=== PATIENT | female | born 1955 | race Caucasian/White ===

== ENCOUNTER 2019-08-21 16:24 | Emergency (ER) | payer MEDICARE, BC ==
--- NOTE | 2019-08-21 16:40 | EDM.PDOC ---
ED HPI GENERAL MEDICAL PROBLEM - General Chief Complaint: Upper Extremity Injury/Pain Stated Complaint: ACCIDENT VIA [facility] Time Seen by Provider: 08/21/19 16:25 Source of Information: Reports: Patient, EMS Notes Reviewed History Limitations: Reports: No Limitations - History of Present Illness INITIAL COMMENTS - FREE TEXT/NARRATIVE: And fell off a horse to ground and is complaining of severe left elbow pain and validity to flex or extend her left elbow. After falling the patient walked 2 miles back to where she started through the brewer he has complained of absolutely no problems with balance or any lower extremity pain. Patient denies any head injury and states she was wearing a helmet when she fell. She is not anticoagulated. Did receive Toradol ambulance personnel prior to arrival Onset: Today Duration: Hour(s): (2) Location: Reports: Upper Extremity, Left Quality: Reports: Sharp Severity: Severe Improves with: Reports: Medication ([place] in the ambulance prior to arrival) Worsens with: Reports: Movement Associated Symptoms: Denies: Confusion, Chest Pain, Fever/Chills, Headaches, Nausea/Vomiting, Seizure, Shortness of Breath, Syncope Treatments DIAL PRINTER: Reports: Other (see below) (Toradol) - Related Data Allergies Allergy/AdvReac Type Severity Reaction Status Date / Time No Known Allergies Allergy Verified 08/21/19 16:32 Home Meds: Home Meds NK [No Known Home Meds] 08/21/19 [History] Past Medical History - Past Health History Medical/Surgical History: Denies Medical/Surgical History (She is on no chronic medication) Review of Systems - Review of Systems Review Of Systems: See Below Constitutional: Reports: No Symptoms. Denies: Fever, Weakness Eyes: Denies: Blurred Vision Ears: Denies: Dizziness Nose: Denies: Congestion, Bloody Discharge Mouth/Throat: Denies: Bleeding, Loose Teeth, Pain, Hoarse Voice, Muffled Voice Respiratory: Denies: Shortness of Breath, Wheezing Cardiovascular: Reports: Irregular Heart Rate (SHe has a history of frequent PVCs). Denies: Chest Pain, Lightheadedness, Syncope GI/Abdominal: Denies: Abdominal Pain Genitourinary: Denies: Dysuria Musculoskeletal: Reports: Arm Pain (Left elbow). Denies: Neck Pain, Shoulder Pain, Hand Pain, Leg Pain Skin: Denies: Jaundice, Diaphoresis, Bruising, Erythema Neurological: Denies: Confusion, Dizziness, Headache, Trouble Speaking, Difficulty Walking Psychiatric: Reports: No Symptoms ED EXAM, GENERAL - Physical Exam Exam: See Below Exam Limited By: No Limitations General Appearance: Alert, WD/WN, Anxious Eye Exam: Bilateral Eye: EOMI, PERRL Ears: Normal External Exam, Normal Canal, Normal TMs Ear Exam: Bilateral Ear: Auricle Normal, Canal Normal, TM normal Nose: Normal Inspection. No: Nasal Drainage, Clear Rhinorrhea Throat/Mouth: Normal Inspection, Normal Lips, Normal Gums Head: Atraumatic, Normocephalic. No: Facial Swelling, Facial Tenderness Neck: Normal Inspection, Full Range of Motion. No: Limited Range of Motion, Tender Midline Respiratory/Chest: No Respiratory Distress, Lungs Clear Cardiovascular: Normal Peripheral Pulses, Regular Rate, Rhythm, No Edema Peripheral Pulses: 1+: Radial (L), Radial (R) GI/Abdominal: Normal Bowel Sounds, No Distention, No Mass Extremities: Normal Inspection, Normal Range of Motion, No Pedal Edema, Normal Capillary Refill, Arm Pain, Limited Range of Motion Neurological: Alert, Oriented, Normal Cognition, No Motor/Sensory Deficits, Other (Fuses to flex or extend her left elbow) Psychiatric: Normal Affect, Normal Mood Skin Exam: Warm, Dry, Intact. No: Jaundice Lymphatic: No Adenopathy ED TRAUMA EXTREMITY PROCEDURES - Joint Reduction Left Elbow Sedation: Conscious Sedation Pre-Procedure NV Status: Normal Post-Procedure NV Status: Normal Technique: Traction/Counter Traction, Other ([place] of the hand then downward pressure to release the elbow and traction to reduce it) Number of Attempts: 1 Post-Reduction Imaging: Completely Reduced, Fracture Seen, Other ( was present on the reduction film) Joint Reduction Complications: No Progress/Comments: Patient tolerated the procedure quite well does not recall any of it. Posterior splint was placed with the elbow only at 120 degrees rather than 90 degrees Course - Vital Signs Text/Narrative:: Shows posterior dislocation and a fracture fragment most likely from the distal humerus. Radiologist has recommended CT scan of the elbow after the elbow has been relocated. I discussed with the patient the need for elbow reduction potential complications, and options of no treatment. I have told the patient that her elbow is already fractured and she will need follow-up with an orthopedist. She is consented to the procedure. Anesthesia has been called for procedural sedation. After the initial reduction x-rays performed which showed the elbow in joint, unfortunately it almost immediately came out of joint before the second x-ray view was taken. Patient was administered another 1 mg Dilaudid IV and reduction reattempted. During that reduction I felt considerable crepitance and grinding in the joint. Joint appears to be quite unstable most likely secondary to the fracture. Patient receives her primary care in [place] and I will be consulting orthopedic group from there. At 1820 I discussed the patient with on-call orthopedist from [place], Dr. baltazar. He is stated that the elbow most likely is unstable due to fracture and stretching of surrounding soft tissue and at the treatment may be best with a "hinged external fixator". This is specialized treatment that they do not do in [place] and he has recommended the patient be transferred to [place]. 1839 I discussed the patient with emergency department physician from [place], Dr. Obando. He has been accepted for transfer. Last Recorded V/S: Last Vital Signs Temp 35.8 C L 08/21/19 16:41 Pulse 77 08/21/19 16:41 Resp 16 08/21/19 16:41 BP 147/69 H 08/21/19 16:41 Pulse Ox 99 08/21/19 16:41 - Orders/Labs/Meds Orders: Active Orders 24 hr Category Date Time Status Elbow 2V Lt [CR] Stat Exams 08/21/19 18:06 Ordered Meds: Medications Discontinued Medications Generic Name Dose Route Start Last Admin Trade Name Freq PRN Reason Stop Dose Admin Hydromorphone HCl 1 mg 08/21/19 17:57 Dilaudid IVPUSH 08/21/19 17:58 ONETIME ONE Propofol Confirm 08/21/19 17:41 Diprivan 20 Ml Administered 08/21/19 17:42 Dose 200 mg .ROUTE .STK-MED ONE Departure - Departure Time of Disposition: 17:46 Disposition: Home, Self-Care 01 Clinical Impression: Fall from horse Qualifiers: Encounter type: initial encounter Qualified Code(s): V80.010A - Animal-rider injured by fall from or being thrown from horse in noncollision accident, initial encounter Dislocation closed, elbow Qualifiers: Encounter type: initial encounter Laterality: left Qualified Code(s): S53.105A - Unspecified dislocation of left ulnohumeral joint, initial encounter Fracture of elbow Qualifiers: Encounter type: initial encounter Fracture type: closed Laterality: left Qualified Code(s): S42.402A - Unspecified fracture of lower end of left humerus , initial encounter for closed fracture - Discharge Information Instructions: Elbow Dislocation, [id number], Cast or Splint Care, Adult Referrals: PCP,None [Primary Care Provider] - Forms: ED Department Discharge Additional Instructions: Go directly to the emergency department in [place]. Not eat or drink anything between now and then. Try to keep your left arm elevated and iced as much as possible. Try using just acetaminophen and ibuprofen for pain but if you need stronger pain medication oxycodone is provided. Sepsis Event Note - Focused Exam Vital Signs: Vital Signs Temp Pulse Resp BP Pulse Ox 08/21/19 16:41 35.8 C L 77 16 147/69 H 99 08/21/19 16:27 35.8 C L 77 16 147/69 H 99 Date Exam was Performed: 08/21/19 Time Exam was Performed: 18:22 - My Orders Last 24 Hours: My Active Orders 08/21/19 18:06 Elbow 2V Lt [CR] Stat - Assessment/Plan Last 24 Hours: My Active Orders 08/21/19 18:06 Elbow 2V Lt [CR] Stat
--- NOTE | 2019-08-21 17:16 | CRLCR ---
INDICATION: trauma, fall from horse, pain HISTORY: Trauma. COMPARISON: None. TECHNIQUE: Left elbow, single lateral view. FINDINGS: The radius and ulna are posteriorly displaced with respect to the humerus. Bone fragments are present about the distal humerus. The findings are compatible with a posterior fracture dislocation. No radiopaque foreign body or underlying bone lesion is seen. IMPRESSION: 1. Acute fracture dislocation of the left elbow joint. 2. After reduction, CT is suggested for further assessment. Dictated by Sha Navarrete MD @ 08/21/2019 5:15:04 PM Dictated by: Sha Navarrete MD @ 08/21/2019 17:15:12 (Electronically Signed)
[2019-08-21] MEDS ORDERED: Propofol 200 MG/20 ML SDV ONE (17:41)
[2019-08-21] MEDS ORDERED: HYDROmorphone 1 MG/ML Syringe IVPUSH ONE (17:57)
--- NOTE | 2019-08-21 18:08 | CRLCR ---
Indication: Postreduction. Technique: Left elbow 3 views. Comparison: Left elbow radiograph 08/21/2019. Findings: Overlying cast material limits evaluation of fine detail. The initial lateral image of the elbow demonstrates reduction of the previously seen dislocation, however the final lateral view demonstrates that the elbow is again dislocated with the radius and ulna located posterior to the humerus. Again seen are osseous fragments about the distal aspect of the humerus compatible with an underlying fracture. No elbow joint effusion. Soft tissue swelling about the elbow. Impression: 1. On the final image, the elbow is again dislocated. 2. Osseous fragments about the distal humerus compatible with an underlying fracture. Dictated by Cheyenne Mtz MD @ Aug 21 2019 6:03PM Signed by Dr. Cheyenne Mtz @ Aug 21 2019 6:08PM
--- NOTE | 2019-08-21 18:31 | CRLCR ---
Indication: Post reduction. Technique: Left elbow 1 views. Comparison: Left elbow radiograph 08/21/2019. Findings: Single image demonstrates improved alignment of the radius and ulna with respect to the humerus, however the image is not a true lateral view. Again seen are fracture fragments about the distal humerus. Soft tissue swelling of the elbow. Impression: There appears to be improved alignment of the elbow joint, however the image is not a true lateral view. Dictated by Cheyenne Mtz MD @ Aug 21 2019 6:26PM Signed by Dr. Cheyenne Mtz @ Aug 21 2019 6:31PM
== END 2019-08-21 19:50 | disposition home or self-care (01) ==
LOC: JP.ED 16:24
DX: S42.402A Unspecified fracture of lower end of left humerus, initial encounter for closed fracture (principal); S53.125A Posterior dislocation of left ulnohumeral joint, initial encounter; V80.010A Animal-rider injured by fall from or being thrown from horse in noncollision accident, initial encounter
CPT/HCPCS: 24600; 24605; 73070; 73080; 96374; 99284; 99285; J1170; J2704